=== PATIENT | male | born 1970 | race Caucasian/White ===

== ENCOUNTER 2018-05-21 07:56 | Emergency (ER) | payer OTHER ==
[2018-05-21 08:05] VITALS: TEMP 98.7; BMI 32.8
[2018-05-21] MEDS ORDERED: ASPIRIN 325 MG TABLET PO ONE (08:15)
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
[2018-05-21] MEDS ORDERED: ASPIRIN 325 MG TABLET ONE (08:22)
[2018-05-21 08:37] LABS: BASO % 0.7 % (0-2.0); EOS % 3.3 % (0-4.5); HEMOGLOBIN 14.3 GM/dl (11.7-16.9); LYMPH % 39.4 % (8-40); MCHC 33.2 g/dl (32.0-35.9); MEAN CELL VOLUME 93.3 fl (80-96); MONO % 6.5 % (3.8-10.2); NEUT % 50.1 % (42.8-82.8); PLATELET COUNT 165 K/MM3 (134-434); RBC 4.61 M/mm3 (4.00-5.60); RDW 12.2 % (11.9-15.9); WHITE BLOOD COUNT 5.8 K/mm3 (4.0-10.8)
[2018-05-21 08:46] LABS: ALBUMIN 4.2 g/dl (3.5-5.0); ALK PHOS 62 U/L (32-92); ANION GAP 8 MMOL/L (8-16); BILIRUBIN,TOTAL 0.5 mg/dl (0.2-1.0); BLOOD UREA NITROGEN 13 mg/dl (7-18); CALCIUM 8.9 mg/dl (8.4-10.2); CHLORIDE 102 mmol/L (98-107); CO2 26 mmol/L (22-28); CREATININE 0.9 mg/dl (0.6-1.3); GLUCOSE,RANDOM 100 mg/dl (74-106); SGOT/AST 39 U/L (10-42); SGPT/ALT 50 U/L (10-40); SODIUM 136 mmol/L (136-145); TOT PROT 7.3 g/dl (6.4-8.3)
[2018-05-21 09:15] VITALS: BP 150/105; PULSE 96
--- NOTE | 2018-05-23 09:56 | EKG ---
Test Reason : Blood Pressure : / mmHG Vent. Rate : 084 BPM Atrial Rate : 084 BPM P-R Int : 176 ms QRS Dur : 084 ms QT Int : 390 ms P-R-T Axes : 046 031 024 degrees QTc Int : 460 ms NORMAL SINUS RHYTHM NORMAL ECG NO PREVIOUS ECGS AVAILABLE Confirmed by SHILOH WALTON MD ([id number]) on 05/23/2018 9:56:14 AM Referred By: OWEN WEIR Confirmed By:SHILOH WALTON MD
== END 2018-05-21 09:26 | disposition home or self-care (01) ==
LOC: FER 07:56
DX: R07.9 Chest pain, unspecified (principal); I10 Essential (primary) hypertension
CPT/HCPCS: 36415; 71046-TC-FY; 80053; 84484; 85025; 93005; 99283-25

== ENCOUNTER 2020-12-30 10:46 | Emergency (ER) | payer BC, OTHER ==
[2020-12-30 10:54] VITALS: BMI 34.4
[2020-12-30] MEDS ORDERED: LORazepam 2 MG/ML SDV VIAL IVPUSH ONE (11:15)
[2020-12-30] MEDS ORDERED: LORazepam 2 MG/ML SDV VIAL ONE ×2 (11:17→13:17)
[2020-12-30 11:54] VITALS: TEMP 98.7
[2020-12-30 11:56] LABS: HEMOGLOBIN 16.3 GM/dl (11.7-16.9); MCH 32.3 pg (25.7-33.7); MEAN CELL VOLUME 95.1 fl (80-96); MEAN PLT VOLUME 9.6 fl (7.5-11.1); PLATELET COUNT 174 10^3/uL (134-434); RBC 5.05 M/mm3 (4.00-5.60); RDW 13.1 % (11.9-15.9); WHITE BLOOD COUNT 7.7 K/mm3 (4.0-10.8)
[2020-12-30 12:00] LABS: ALBUMIN 4.3 g/dl (3.4-5.0); ALK PHOS 53 U/L (45-117); ANION GAP 11 MMOL/L (8-16); BILIRUBIN,TOTAL 1.2 mg/dl (0.2-1); CALCIUM 9.4 mg/dl (8.5-10); CHLORIDE 102 mmol/L (98-107); CO2 26 mmol/L (21-32); CREATININE 1.1 mg/dl (0.55-1.3); GLUCOSE,RANDOM 104 mg/dl (74-106); SGOT/AST 38 U/L (15-37); SGPT/ALT 57 U/L (13-61); SODIUM 139 mmol/L (136-145); TOT PROT 7.9 g/dl (6.4-8.2)
[2020-12-30] MEDS ORDERED: SODIUM CHLORIDE 0.9% 500 ML INFUS.BAG IV ONE (12:45)
[2020-12-30] MEDS ORDERED: LORazepam 2 MG/ML SDV VIAL IVPB ONE (12:46)
[2020-12-30 12:54] LABS: N-TERMINAL BNP 74.5 pg/ml (5-125)
[2020-12-30] MEDS ORDERED: METOPROLOL TARTRATE 25 MG TABLET (FP) PO ONE (14:04)
[2020-12-30] MEDS ORDERED: METOPROLOL TARTRATE 50 MG TABLET (FP) ONE (14:35)
[2020-12-30 15:12] VITALS: PULSE 97
[2020-12-30 15:42] VITALS: BP 160/108
== END 2020-12-30 15:38 | disposition home or self-care (01) ==
LOC: FER 10:46
PROC: 3E033GC Introduction of Other Therapeutic Substance into Peripheral Vein, Percutaneous Approach (ICD-10-PCS; principal; 2020-12-30)
DX: I10 Essential (primary) hypertension (principal)
CPT/HCPCS: 36415; 71046-TC-FY; 80053; 82550; 83880; 84443; 84484; 85027; 93005; 99285-25; C9803; U0003; U0005

== ENCOUNTER 2021-06-25 04:39 | Day surgery (SDC) | payer BC, OTHER ==
[2021-06-20 17:12] VITALS: BMI 36.0
[2021-06-25 08:35] VITALS: TEMP 98
[2021-06-25 09:54] VITALS: BP 125/92; PULSE 89
== END 2021-06-25 09:25 | disposition home or self-care (01) ==
LOC: JASU-ENDO 04:39
PROVIDERS: ATTEND Internal Medicine Gastroenterology
PROC: 0DJD8ZZ Inspection of Lower Intestinal Tract, Via Natural or Artificial Opening Endoscopic (ICD-10-PCS; principal; 2021-06-25 08:00)
DX: Z12.11 Encounter for screening for malignant neoplasm of colon (principal); K57.30 Diverticulosis of large intestine without perforation or abscess without bleeding; K64.8 Other hemorrhoids; I10 Essential (primary) hypertension; J45.909 Unspecified asthma, uncomplicated; Z83.71 Family history of colonic polyps

== ENCOUNTER 2022-05-13 04:17 | Day surgery (SDC) | payer OTHER ==
[2022-05-06 12:30] VITALS: BMI 35.9
[~2022-05-13 04:17] MED LIST: BUPIVACAINE HCL/PF 0.5% (5MG/ML) 10 ML VIAL IJ ONE; LIDOCAINE 1%/EPI 1:100000 (50 ML MULTI DOSE VIAL) INF ONE
[2022-05-13] MEDS ORDERED: BUPIVACAINE HCL/PF 0.5% (5MG/ML) 10 ML VIAL ONE (07:33)
[2022-05-13] MEDS ORDERED: PHENYLEPHRINE HCL 10 MG/1 ML SINGLE DOSE VIAL ONE (09:53)
[2022-05-13] MEDS ORDERED: MIDAZOLAM HCL 2 MG/2 ML SINGLE DOSE VIAL ONE (09:54)
[2022-05-13] MEDS ORDERED: FENTANYL CITRATE/PF 50 MCG/ML VIAL ONE ×4 (09:54→11:24)
[2022-05-13] MEDS ORDERED: LIDOCAINE 1%/EPI 1:100000 (50 ML MULTI DOSE VIAL) INF ONE (10:26)
[2022-05-13] MEDS ORDERED: BUPIVACAINE HCL/PF 0.5% (5MG/ML) 10 ML VIAL IJ ONE ×2 (10:26)
[2022-05-13] MEDS ORDERED: oxyCODONE HCL 5 MG TABLET PO PRN ×2 (10:55)
[2022-05-13] MEDS ORDERED: ACETAMINOPHEN 325 MG TABLET (FP) PO PRN (10:55)
[2022-05-13] MEDS ORDERED: LACTATED RINGERS SOLUTION 1,000 ML IV SCH (11:00)
[2022-05-13 12:16] VITALS: RESP 18
[2022-05-13 12:31] VITALS: BP 136/79; PULSE 63; TEMP 98.8
== END 2022-05-13 12:30 | disposition home or self-care (01) ==
LOC: JASU-SURG 04:17
PROVIDERS: ATTEND Orthopaedic Surgery
PROC: 0SBD4ZZ Excision of Left Knee Joint, Percutaneous Endoscopic Approach (ICD-10-PCS; principal; 2022-05-13 09:45)
DX: M23.222 Derangement of posterior horn of medial meniscus due to old tear or injury, left knee (principal); M23.262 Derangement of other lateral meniscus due to old tear or injury, left knee; M67.52 Plica syndrome, left knee
CPT/HCPCS: 94760

== ENCOUNTER 2022-12-22 07:22 | Emergency (ER) | payer BC, OTHER ==
[2022-12-22 07:30] VITALS: PULSE 85; RESP 18; TEMP 98; BMI 34.8
[2022-12-22 08:37] LABS: BASO % 0.4 % (0-2.0); EOS % 5.5 % (0-4.5); HEMATOCRIT 42.6 % (35.4-49); HEMOGLOBIN 14.5 GM/dL (11.7-16.9); MCH 32.4 pg (25.7-33.7); MEAN CELL VOLUME 95.3 fl (80-96); MEAN PLT VOLUME 8.8 fl (7.5-11.1); MONO % 10.8 % (3.8-10.2); NEUT % 54.3 % (42.8-82.8); PLATELET COUNT 164 10^3/uL (134-434); RBC 4.48 M/mm3 (4.00-5.60); RDW 14.6 % (11.9-15.9); WHITE BLOOD COUNT 5.9 K/mm3 (4.0-10.0)
[2022-12-22 09:07] LABS: POTASSIUM 4.2 mmol/L (3.5-5.1)
[2022-12-22 09:09] LABS: CALCIUM 9.2 mg/dL (8.5-10.1)
[2022-12-22 09:10] LABS: ALBUMIN 3.8 g/dl (3.4-5.0); BLOOD UREA NITROGEN 16.7 mg/dL (7-18)
[2022-12-22 09:13] LABS: CREATININE 1.2 mg/dL (0.55-1.3)
[2022-12-22 09:14] LABS: BILIRUBIN,TOTAL 0.8 mg/dL (0.2-1); TOT PROT 7.2 g/dl (6.4-8.2)
[2022-12-22] MEDS ORDERED: ALBUTEROL SO4 2.5/IPRATROPIUM 0.5 INH SOL 3 ML VIAL.NEB. NEB ONE ×3 (10:15→10:39)
[2022-12-22] MEDS ORDERED: DEXAMETHASONE SOD PHOSPHATE 4 MG/1 ML VIAL IVPUSH ONE (10:16)
[2022-12-22] MEDS ORDERED: DEXAMETHASONE SOD PHOSPHATE 4 MG/1 ML VIAL ONE (10:40)
[2022-12-22 11:36] VITALS: BP 111/81
== END 2022-12-22 11:51 | disposition home or self-care (01) ==
LOC: JER 07:22
PROC: 3E033GC Introduction of Other Therapeutic Substance into Peripheral Vein, Percutaneous Approach (ICD-10-PCS; principal; 2022-12-22)
PROC: 3E0F7GC Introduction of Other Therapeutic Substance into Respiratory Tract, Via Natural or Artificial Opening (ICD-10-PCS; 2022-12-22)
DX: R05.9 Cough, unspecified (principal); R09.3 Abnormal sputum; R06.2 Wheezing; R07.89 Other chest pain; Z20.822 Contact with and (suspected) exposure to COVID-19
CPT/HCPCS: 0241U-QW; 36415; 71045-TC-FY; 80053; 84484; 85025; 87040; 93005; 93010; 99285-25